=== PATIENT | female | born 1980 | race Caucasian/White ===

== ENCOUNTER → 2023-08-08 | Outpatient (CLI) | payer OTHER ==
--- NOTE | 2023-08-08 11:09 | USB ---
Reason for Exam: Clinical finding. Patient History: Menarche at age 10. First Full-Term at age 18. Currently using Unspecified Hormone. Maternal cousin had breast cancer at or over age 50. Maternal aunt had breast cancer at or over age 50. Risk Values: Iliana 5 year model risk: 0.5%. NCI Lifetime model risk: 7.9%. Technique: Method: Targeted. Findings: The area of palpable concern of the left breast, the axilla of the left breast and the retroareolar of the left breast were scanned. Technique utilized:US breast limited LT Image; Ultrasound imaging of: Area of concern, retroareolar region and axilla. No evidence for organizing fluid collection or mass. Overall Assessment: Benign, BI-RAD 2 Management: Screening Mammogram of both breasts in 1 year. A clinical breast exam by your physician is recommended on an annual basis and results should be correlated with mammographic findings. This exam should not preclude additional follow-up of suspicious palpable abnormalities. Results were given to the patient verbally at the time of exam. Electronically signed and approved by: Mitchel Khan DO
--- NOTE | 2023-08-08 11:41 | MM ---
Reason for Exam: Clinical finding. Indicated Problems: Lump or thickening of the left side for 1 Month(s). Patient History: Menarche at age 10. First Full-Term at age 18. Currently using Unspecified Hormone. Maternal cousin had breast cancer at or over age 50. Maternal aunt had breast cancer at or over age 50. Risk Values: Iliana 5 year model risk: 0.5%. NCI Lifetime model risk: 7.9%. Prior Study Comparison: No prior studies available for comparison. Tissue Density: The breast tissue is almost entirely fat. Findings: Analyzed By CAD. No new suspicious masses, calcifications or distortions. Bilateral benign appearing calcifications. Nothing to correlate with palpable abnormality on the left. Overall Assessment: Incomplete: need additional imaging evaluation, BI-RAD 0 Management: Diagnostic Breast Ultrasound of the left breast. Results were given to the patient verbally at the time of exam. Patient should continue monthly self-breast exams. A clinical breast exam by your physician is recommended on an annual basis. This exam should not preclude additional follow-up of suspicious palpable abnormalities. Note on Iliana scores and lifetime risk: 1. A Iliana score greater than 3% is considered moderate risk. If this is the case, consider specialist referral to assess eligibility for a risk reducing agent. 2. If overall lifetime risk for the development of breast cancer is 20% or higher, the patient may qualify for future screening with alternating mammogram and breast MRI. Electronically signed and approved by: Mitchel Khan DO
== END | disposition home or self-care (01) ==
LOC: RADMAMWWP 10:03
PROVIDERS: ATTEND Family Medicine
DX: R92.313 Mammographic fatty tissue density, bilateral breasts (principal); N63.20 Unspecified lump in the left breast, unspecified quadrant; Z80.3 Family history of malignant neoplasm of breast
CPT/HCPCS: 77062; 77066